=== PATIENT | female | born 1975 | race African-American/Black ===

== ENCOUNTER 2016-07-11 17:48 | Emergency (ER) | payer MEDICAID ==
[~2016-07-11] VITALS: Ht 167.6 cm; Wt 110.0 kg
[~2016-07-11 17:48] MED LIST: ASPI81CH CHEW; BENI40TA3 PO; CARV12.5 PO; CYCL1TAB29 PO; ENOX40P SQ; HYDR-3535 PO; LYRI50CA PO; MECL-62 PO; MELO-1 PO; RANI150C PO; SYMB160A INH; VENTAER INH
[2016-07-11 17:50] VITALS: BP 130/88; PULSE 93; RESP 15; TEMP 97.8; O2SAT 98
[2016-07-11] MEDS ORDERED: AMLO5TAB2 PO (18:14)
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
[2016-07-11 18:37] LABS: BLOOD, URINE NEG (NEG); COMMENT (UR) CULT NOT INDICATED; CULTURE IF INDICATED CULT NOT INDICATED; GLUCOSE,URINE NEG (NEG); KETONE, URINE NEG (NEG); MUCUS URINE FEW /lpf (OCC); NITRITE,URINE NEG (NEG); SQUAMOUS EPITHELIAL CELL URINE 5 /hpf (0-5); URINE COLOR YELLOW (YELLW/STRAW)
--- NOTE | 2016-07-11 18:56 | PD ---
Physical Exam Date Seen by Provider: Jul 11, 2016 Narrative Patient presented for a mass on the chest wall which disappeared today. Data Data Last Documented VS Vital Signs Date Time Temp Pulse Resp B/P Pulse Ox O2 Delivery O2 Flow Rate FiO2 07/11/16 18:05 18 Room Air 07/11/16 17:50 97.8 93 130/88 98 Orders Urinalysis - C+S If Indicated (07/11/16 18:13) Ed Urine Pregnancytest Poc (07/11/16 18:13) Labs Laboratory Tests Test 07/11/16 18:15 Urine Color YELLOW Urine Turbidity CLEAR Urine pH 6.0 Urine Specific [place] 1.025 Urine Protein NEG mg/dL Urine Glucose (UA) NEG mg/dL Urine Ketones NEG mg/dL Urine Occult Blood NEG Urine Nitrite NEG Urine Bilirubin NEG Urine Urobilinogen 2.0 MG/DL Urine Leukocyte Esterase NEG Urine WBC 1 /hpf Urine Squamous Epithelial 5 /hpf Cells Urine Mucus FEW /lpf Microscopic Urinalysis Comment CULT NOT INDICATED MDM Supervised Visit with LISET: Yes Narrative Course I, Dr. Cassidy, have reviewed the advance practice practitioner's documentation and am in agreement, met with the patient face to face, made the diagnosis, and the medical decision making was done by me. *My assessment and Findings: The patient was almost bouncing down the hallway in no acute distress. Diagnosis Primary Impression: Urinary frequency Referrals: Primary Care Physician call for appointment Patient Instructions: General Instructions, Urinary Urgency and Frequency (DC) Departure Forms: Tests/Procedures Additional Instruction: Follow-up with your primary care physician. Return to the emergency department for any acute worsening of symptoms. Disposition: 01 DISCHARGE HOME Condition: Stable Kely Cassidy MD Jul 11, 2016 18:56
== END 2016-07-11 19:04 | disposition home or self-care (01) ==
LOC: NEPA 17:48
DX: R39.15 Urgency of urination (principal); R35.0 Frequency of micturition; E11.9 Type 2 diabetes mellitus without complications; I10 Essential (primary) hypertension; F17.200 Nicotine dependence, unspecified, uncomplicated; Z79.01 Long term (current) use of anticoagulants; Z87.39 Personal history of other diseases of the musculoskeletal system and connective tissue; Z87.09 Personal history of other diseases of the respiratory system; Z86.59 Personal history of other mental and behavioral disorders; Z85.41 Personal history of malignant neoplasm of cervix uteri; Z86.79 Personal history of other diseases of the circulatory system; Z87.19 Personal history of other diseases of the digestive system; Z86.69 Personal history of other diseases of the nervous system and sense organs
CPT/HCPCS: 81001; 84703; 99283

== ENCOUNTER 2016-07-16 19:16 | Emergency (ER) | payer MEDICAID ==
[~2016-07-16] VITALS: Ht 170.2 cm; Wt 80.0 kg
[~2016-07-16 19:16] MED LIST changes: +AMLO5TAB2 PO
[2016-07-16 19:19] VITALS: BP 122/82; PULSE 88; RESP 16; TEMP 98.6; O2SAT 96
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
[2016-07-16] MEDS ORDERED: SODIUM CHLORIDE 0.9% FLUSH 5 ML FLUSH IVF PRN (19:45)
[2016-07-16] MEDS ORDERED: RESP: ALBUTEROL 2.5 MG/IPRATROPIUM 0.5 MG NEB (SCH) INH ONE (19:45)
--- NOTE | 2016-07-16 20:17 | RADRPT ---
EXAM DATE/TIME: 07/16/2016 19:50 [facility] COMPARISON: CHEST SINGLE AP, March 04, 2016, 15:05. INDICATIONS : Cough. MEDICAL HISTORY : None. SURGICAL HISTORY : None. ENCOUNTER: Initial ACUITY: 1 day PAIN SCORE: 0/10 LOCATION: Bilateral chest FINDINGS: A single view of the chest demonstrates the lungs to be symmetrically aerated without evidence of mas s, infiltrate or effusion. The cardiomediastinal contours are unremarkable. Osseous structures are intact. CONCLUSION: No acute disease. Haider Grace MD on July 16, 2016 at 20:16 Board Certified Radiologist. This report was verified electronically.
[2016-07-16 20:23] LABS: AUTOMATED NEUTROPHIL # 2.3 TH/MM3 (1.8-7.7); BASOPHIL # 0.1 TH/MM3 (0-0.2); BASOPHIL % 1.2 % (0.0-2.0); EOSINOPHIL # 0.2 TH/MM3 (0-0.4); EOSINOPHIL % 4.4 % (0.0-4.0); HEMATOCRIT 36.8 % (35.0-46.0); HEMO FLAGS DIFF FINAL; LYMPH % 34.9 % (9.0-44.0); LYMPHOCYTE # 1.7 TH/MM3 (1.0-4.8); MEAN CELL VOLUME 93.1 FL (80.0-100.0); MEAN CORPUSCULAR HEMOGLOBIN 31.9 PG (27.0-34.0); MEAN CORPUSCULAR HGB CONC 34.3 % (32.0-36.0); MONO % 11.2 % (0.0-8.0); NEUT % 48.3 % (16.0-70.0); PLATELET COUNT 216 TH/MM3 (150-450); RED BLOOD COUNT 3.96 MIL/MM3 (4.00-5.30); RED CELL DISTRIBUTION WIDTH 14.3 % (11.6-17.2); WHITE BLOOD COUNT 4.9 TH/MM3 (4.0-11.0)
[2016-07-16 21:01] LABS: BICARBONATE 31.7 MEQ/L (21.0-32.0); POTASSIUM 3.2 MEQ/L (3.5-5.1)
[2016-07-16] MEDS ORDERED: ZITHTAB PO (21:10)
[2016-07-16] MEDS ORDERED: VENTAER INH (21:10)
[2016-07-16] MEDS ORDERED: POTASSIUM CHLORIDE 20 MEQ CONTROLLED RELEASE TAB PO ONE (21:15)
--- NOTE | 2016-07-18 07:00 | EKG ---
Date Performed: 07/16/2016 Time Performed: 19:51:21 PTAGE: 41 years EKG: Sinus rhythm NORMAL ECG PREVIOUS TRACING : 05/07/2016 05.11 Compared to prior tracing no significant change DOCTOR: David Gonzalez Interpretating Date/Time 07/18/2016 06:58:50
== END 2016-07-16 21:31 | disposition home or self-care (01) ==
LOC: NEPC 19:16
DX: J32.9 Chronic sinusitis, unspecified (principal); E87.6 Hypokalemia; M06.9 Rheumatoid arthritis, unspecified; J45.909 Unspecified asthma, uncomplicated; F31.9 Bipolar disorder, unspecified; I10 Essential (primary) hypertension; F17.210 Nicotine dependence, cigarettes, uncomplicated; Z79.01 Long term (current) use of anticoagulants
CPT/HCPCS: 71010; 80048; 85025; 87804; 93005; 94664

== ENCOUNTER 2016-09-07 08:47 | Emergency (ER) | payer MEDICAID ==
[~2016-09-07] VITALS: Ht 167.6 cm; Wt 95.5 kg
[~2016-09-07 08:47] MED LIST changes: +ZITHTAB PO
[2016-09-07 08:50] VITALS: BP 130/65; PULSE 84; RESP 20; TEMP 98.6; O2SAT 94
[2016-09-07] MEDS ORDERED: LIDOCAINE HCL 2% 50 ML VIAL INFIL ONE (10:15)
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
--- NOTE | 2016-09-07 11:10 | PD ---
Physical Exam Date Seen by Provider: Sep 07, 2016 Time Seen by Provider: 11:10 Narrative I was asked by Dr. Escobedo to incise and drain abscess to patient's right labia majora. Please see her documentation for full history and physical. Data Data Last Documented VS Vital Signs Date Time Temp Pulse Resp B/P Pulse Ox O2 Delivery O2 Flow Rate FiO2 09/07/16 08:50 98.6 84 20 130/65 94 Room Air Orders Lidocaine 2% Inj (Xylocaine 2% Inj) (09/07/16 10:15) Wound Culture And Gram Stain (09/07/16 11:21) MDM Medical Record Reviewed: Yes Supervised Visit with LISET: No Procedures Procedure Narrative INCISION AND DRAINAGE OF ABSCESS: The area was prepped and was sterilely draped. A subcutaneous wheal of 2% Xylocaine with a total number 4 mL was used to anesthetize the area. The area was properly anesthetized. A number 11 scalpel was used to make a 1 -cm incision across the area of the abscess. Cultures were obtained. The abscess was drained an irrigated with normal saline. Quarter inch iodoform packing was placed in the wound. Sterile dressing applied. Patient advised to have packing removed in two days. Scripts Sulfamethoxazole-Trimethoprim (Bactrim DS)800-160 Mg Tab1 Tab PO BID #14 TAB Ref 0 Prov:Santana Escobedo MD 09/07/16 Hydrocodone-Acetaminophen (Lortab)5-325 Mg Tab1 Tab PO Q6H PRN (PAIN) #12 TAB Ref 0 Prov:Santana Escobedo MD 09/07/16 Amanda Carballo Sep 07, 2016 11:10
[2016-09-07] MEDS ORDERED: HYDR-3533 PO (11:23)
[2016-09-07] MEDS ORDERED: BACT800T5 PO (11:23)
== END 2016-09-07 11:48 | disposition home or self-care (01) ==
LOC: NEPC 08:47
DX: N76.4 Abscess of vulva (principal); I10 Essential (primary) hypertension; Z85.41 Personal history of malignant neoplasm of cervix uteri; Z79.01 Long term (current) use of anticoagulants
CPT/HCPCS: 10061; 87070; 87205

== ENCOUNTER 2016-09-27 09:30 | Emergency (ER) | payer MEDICAID ==
[~2016-09-27] VITALS: Ht 167.6 cm; Wt 107.9 kg
[~2016-09-27 09:30] MED LIST changes: +BACT800T5 PO; +HYDR-3533 PO
[2016-09-27 09:33] VITALS: BP 134/100; PULSE 78; RESP 17; TEMP 98.9; O2SAT 98
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
[2016-09-27] MEDS ORDERED: ONDANSETRON ODT 4 MG TAB PO ONE (10:30)
[2016-09-27 10:39] LABS: BACTERIA, URINE OCC /hpf; BLOOD, URINE NEG (NEG); COMMENT (UR) CULT NOT INDICATED; CULTURE IF INDICATED CULT NOT INDICATED; GLUCOSE,URINE NEG (NEG); HYALINE CAST, URINE 1 /lpf (RARE); KETONE, URINE NEG (NEG); MUCUS URINE FEW /lpf (OCC); NITRITE,URINE NEG (NEG); PH, URINE 5.5 (5.0-8.5); SQUAMOUS EPITHELIAL CELL URINE 10 /hpf (0-5); TRANSITIONAL EPI CELLS, URINE <1 /hpf; URINE COLOR YELLOW (YELLW/STRAW)
[2016-09-27 11:07] LABS: BICARBONATE 27.5 MEQ/L (21.0-32.0); POTASSIUM 3.9 MEQ/L (3.5-5.1)
[2016-09-27] MEDS ORDERED: METR-1 PO (12:07)
[2016-09-27 12:15] VITALS: BP 138/81; TEMP 98
== END 2016-09-27 12:15 | disposition home or self-care (01) ==
LOC: NEPD 09:30
DX: N76.0 Acute vaginitis (principal); K52.9 Noninfective gastroenteritis and colitis, unspecified; R30.0 Dysuria; I10 Essential (primary) hypertension; E11.9 Type 2 diabetes mellitus without complications; G35 Multiple sclerosis; Z72.0 Tobacco use; Z79.01 Long term (current) use of anticoagulants; Z87.39 Personal history of other diseases of the musculoskeletal system and connective tissue; Z87.09 Personal history of other diseases of the respiratory system; Z86.59 Personal history of other mental and behavioral disorders; Z85.41 Personal history of malignant neoplasm of cervix uteri; Z86.79 Personal history of other diseases of the circulatory system
CPT/HCPCS: 80048; 81001; 87210; 99284

== ENCOUNTER 2016-09-29 22:58 | Observation (INO) | payer MEDICAID ==
[~2016-09-29] VITALS: Ht 167.6 cm; Wt 108.4 kg
[~2016-09-29 22:58] MED LIST changes: -BACT800T5 PO; +METR-1 PO; -ZITHTAB PO
[2016-09-29 23:10] VITALS: RESP 16; O2SAT 97
[2016-09-29 23:20] VITALS: BP 141/91; PULSE 75; RESP 16; TEMP 98.7; O2SAT 98
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
--- NOTE | 2016-09-29 23:58 | RADRPT ---
EXAM DATE/TIME: 09/29/2016 23:49 [facility] COMPARISON: CHEST SINGLE AP, July 16, 2016, 19:50. INDICATIONS : Chest pain. MEDICAL HISTORY : Hypertension. Congestive heart failure. Multiple sclerosis. Asthma. Rheumatoid arthritis. SURGICAL HISTORY : None. ENCOUNTER: Initial ACUITY: 1 day PAIN SCORE: 3/10 LOCATION: Bilateral chest FINDINGS: A single view of the chest demonstrates the lungs to be symmetrically aerated without evidence of mas s, infiltrate or effusion. The cardiomediastinal contours are unremarkable. Osseous structures are intact. CONCLUSION: Normal examination. Carlos Joaquin MD on September 29, 2016 at 23:57 Board Certified Radiologist. This report was verified electronically.
[2016-09-30] MEDS ORDERED: HYDROmorphone HCL PF 1 MG/ML VIAL IV PUSH ONE
[2016-09-30] MEDS ORDERED: SODIUM CHLORID 0.9% 500 ML INJ 500 ML IV ONE
[2016-09-30] MEDS ORDERED: ONDANSETRON HCL 4 MG/2 ML VIAL IV PUSH ONE
[2016-09-30 00:44] LABS: AUTOMATED NEUTROPHIL # 3.1 TH/MM3 (1.8-7.7); BASOPHIL % 0.7 % (0.0-2.0); EOSINOPHIL # 0.2 TH/MM3 (0-0.4); EOSINOPHIL % 3.7 % (0.0-4.0); HEMATOCRIT 34.5 % (35.0-46.0); HEMO FLAGS DIFF FINAL; LYMPH % 34.6 % (9.0-44.0); MEAN CELL VOLUME 94.1 FL (80.0-100.0); MEAN CORPUSCULAR HEMOGLOBIN 32.5 PG (27.0-34.0); MEAN CORPUSCULAR HGB CONC 34.5 % (32.0-36.0); MONO % 7.3 % (0.0-8.0); NEUT % 53.7 % (16.0-70.0); PLATELET COUNT 219 TH/MM3 (150-450); RED BLOOD COUNT 3.67 MIL/MM3 (4.00-5.30); RED CELL DISTRIBUTION WIDTH 15.5 % (11.6-17.2); WHITE BLOOD COUNT 5.7 TH/MM3 (4.0-11.0)
[2016-09-30 00:57] LABS: APTT (PATIENT) 22.7 SEC (24.3-30.1); INTERNATIONAL NORMALIZED RATIO 0.9 RATIO
[2016-09-30 01:11] LABS: ALT (GPT) 20 U/L (10-53); ANION GAP 7 MEQ/L (5-15); AST (GOT) 11 U/L (15-37); BICARBONATE 27.3 MEQ/L (21.0-32.0); BLOOD UREA NITROGEN 15 MG/DL (7-18); CHLORIDE 107 MEQ/L (98-107); GLOMERULAR FILTRATION RATE 110 ML/MIN (>89); MAGNESIUM 2.2 MG/DL (1.5-2.5); POTASSIUM 3.5 MEQ/L (3.5-5.1); SODIUM (NA) 141 MEQ/L (136-145)
[2016-09-30 01:13] LABS: ALKALINE PHOSPHATASE 74 U/L (45-117); TOTAL BILIRUBIN ADULT 0.1 MG/DL (0.2-1.0)
--- NOTE | 2016-09-30 01:15 | RADRPT ---
EXAM DATE/TIME: 09/30/2016 01:08 [facility] COMPARISON: CT BRAIN W/O CONTRAST, May 29, 2016, 20:19. INDICATIONS : Right sided head pain. RADIATION DOSE: 37.42 CTDIvol (mGy) MEDICAL HISTORY : Cardiovascular disease. Multiple sclerosis. Diabetes mellitus type 2. SURGICAL HISTORY : Tubal ligation. ENCOUNTER: Initial ACUITY: 1 day PAIN SCALE: 6/10 LOCATION: Right cranial TECHNIQUE: Multiple contiguous axial images were obtained of the head. Using automated exposure control and adj ustment of the mA and/or kV according to patient size, radiation dose was kept as low as reasonably a chievable to obtain optimal diagnostic quality images. FINDINGS: CEREBRUM: The ventricles are normal for age. No evidence of midline shift, mass lesion, hemorrhage or acute in farction. No extra-axial fluid collections are seen. POSTERIOR FOSSA: The cerebellum and brainstem are intact. The 4th ventricle is midline. The cerebellopontine angle i s unremarkable. EXTRACRANIAL: The visualized portion of the orbits is intact. SKULL: The calvaria is intact. No evidence of skull fracture. CONCLUSION: Normal examination. Carlos Joaquin MD on September 30, 2016 at 1:14 Board Certified Radiologist. This report was verified electronically.
[2016-09-30] MEDS ORDERED: methylPREDNISolone SOD SUCC 125 MG/2 ML VIAL IV PUSH ONE (01:30)
--- NOTE | 2016-09-30 01:35 | RADRPT ---
EXAM DATE/TIME: 09/30/2016 01:08 [facility] COMPARISON: CT CERVICAL SPINE W/O CONTRAST, May 29, 2016, 20:19. INDICATIONS : Right sided neck and arm pain. RADIATION DOSE: 21.51 CTDIvol (mGy) MEDICAL HISTORY : Cardiovascular disease. Multiple sclerosis. Diabetes mellitus type 2. SURGICAL HISTORY : Tubal ligation. ENCOUNTER: Initial ACUITY: 1 day PAIN SCALE: 6/10 LOCATION: Right neck TECHNIQUE: Volumetric scanning of the cervical spine was performed. Multiplanar reconstructions in the sagittal, coronal and oblique axial planes were performed. Using automated exposure control and adjustment o f the mA and/or kV according to patient size, radiation dose was kept as low as reasonably achievable to obtain optimal diagnostic quality images. FINDINGS: VERTEBRAE: Normal vertebral body height. Mild intervertebral disc space narrowing at C4-5, C5-6 and C6-7. Promin ent posterior arthritis multiple levels most significantly at the C4-5 level where there is a periphe rally calcified disc causing a moderate canal stenosis, unchanged. ALIGNMENT: No evidence of subluxation. C2-C3: The bony spinal canal is normal in size. No evidence of disc bulge or herniation. The neural forami na are bilaterally patent. C3-C4: The bony spinal canal is slightly flattened. Central disc protrusion narrowing the thecal sac down to 7 mm. The neural foramina are bilaterally patent. C4-C5: The bony spinal canal is narrowed. Central disc protrusion with some peripheral calcifications narrow ing the thecal sac down to 7 mm. The neural foramina are bilaterally patent. C5-C6: The bony spinal canal is slightly narrowed. Broad based diffuse annular bulge diffusely flattens the thecal sac. The neural foramina are bilaterally patent. C6-C7: The bony spinal canal is normal in size. No evidence of disc bulge or herniation. The neural forami na are bilaterally patent. C7-T1: The bony spinal canal is normal in size. No evidence of disc bulge or herniation. The neural forami na are bilaterally patent. CONCLUSION: Degenerative disease with posterior protrusions at C3-4 and C4-5 narrowing the thecal site down to ap proximately 7 mm. Carlos Joaquin MD on September 30, 2016 at 1:29 Board Certified Radiologist. This report was verified electronically.
[2016-09-30] MEDS ORDERED: NALOXONE HCL 0.4 MG/ML AMP IV PRN (01:45)
[2016-09-30] MEDS ORDERED: SODIUM CHLORIDE 0.9% FLUSH 10 ML FLUSH IV FLUSH PRN (01:45)
[2016-09-30 02:29] LABS: BLOOD, URINE NEG (NEG); COMMENT (UR) CULT NOT INDICATED; CULTURE IF INDICATED CULT NOT INDICATED; GLUCOSE,URINE NEG (NEG); KETONE, URINE NEG (NEG); MUCUS URINE FEW /lpf (OCC); NITRITE,URINE NEG (NEG); SQUAMOUS EPITHELIAL CELL URINE 25 /hpf (0-5); URINE COLOR YELLOW (YELLW/STRAW)
[2016-09-30 05:07] VITALS: BP 121/74; PULSE 71; RESP 18; TEMP 98.4; O2SAT 97
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
[2016-09-30] MEDS ORDERED: CYCLOBENZAPRINE HCL 10 MG TAB PO PRN ×3 (07:15→13:00)
[2016-09-30] MEDS ORDERED: HYDROmorphone HCL PF 1 MG/ML VIAL IV PUSH PRN (07:15)
--- NOTE | 2016-09-30 07:42 | EKG ---
Date Performed: 09/29/2016 Time Performed: 23:26:02 PTAGE: 41 years EKG: BASELINE ARTIFACT PRESENT. Sinus rhythm NORMAL ECG COMPARED TO PRIOR ELECTROCARDIOGRAM, No significant change within the constraints of magaly fact. PREVIOUS TRACING : 07/16/2016 19.51 DOCTOR: Rony Cosme Interpretating Date/Time 09/30/2016 07:42:01
[2016-09-30 08:05] VITALS: BP 142/101; PULSE 74; RESP 18; TEMP 98.4; O2SAT 100
[2016-09-30] MEDS: SODIUM CHLORIDE 0.9% FLUSH 10 ML FLUSH IV FLUSH SCH ×2 (09:12→21:33)
[2016-09-30] MEDS: ENOXAPARIN SODIUM 40 MG/0.4 ML SYRINGE SQ SCH (09:12)
[2016-09-30] MEDS ORDERED: ALBUTEROL SULFATE 90 MCG/ACT HFA 18 GM INHALER INH PRN (11:00)
[2016-09-30] MEDS: metroNIDAZOLE 500 MG TAB PO SCH ×2 (11:32→21:33)
[2016-09-30] MEDS: CARVEDILOL 12.5 MG TAB PO SCH ×2 (11:32→21:33)
[2016-09-30] MEDS: ASPIRIN 81 MG CHEW TAB CHEW SCH (11:33)
[2016-09-30] MEDS: amLODIPine BESYLATE 5 MG TAB PO SCH (11:33)
[2016-09-30] MEDS: LOSARTAN 50 MG TAB PO SCH (11:36)
--- NOTE | 2016-09-30 11:40 | RADRPT ---
EXAM DATE/TIME: 09/30/2016 10:49 [facility] COMPARISON: No previous studies available for comparison. INDICATIONS : Bilateral leg numbness and pain. MEDICAL HISTORY : Congestive heart failure. Myocardial infarction. Hypertension. Multiple sclerosis. Chest pain. Asthma . Dyspnea. Seizures. Suad rectal abscess. Arthritis. Hypogycemia. Personality disorder. Cervical canc er. SURGICAL HISTORY : section.Tubal ligation. Heart catheter. Suad rectal abscess. ENCOUNTER: Initial ACUITY: >1 year PAIN SCORE: 4/10 LOCATION: Bilateral legs. TECHNIQUE: Venous ultrasound of the left and right leg was performed from the inguinal ligament to the proximal calf. Real-time, color Doppler and spectral tracing, compression and augmentation techniques were us ed. FINDINGS: RIGHT LEG: There is normal compressibility of the deep venous system from the inguinal region to the proximal ca lf. No echogenic clot is seen in the lumen of the common femoral, femoral, popliteal, and posterior tibial veins. There is a normal response of the venous system to proximal and distal augmentation an d respiration. LEFT LEG: There is normal compressibility of the deep venous system from the inguinal region to the proximal ca lf. No echogenic clot is seen in the lumen of the common femoral, femoral, popliteal, and posterior tibial veins. There is a normal response of the venous system to proximal and distal augmentation an d respiration. CONCLUSION: The study is negative for deep venous thrombosis bilateral lower extremity. Umair Slade MD on September 30, 2016 at 11:38 Board Certified Radiologist. This report was verified electronically.
[2016-09-30 12:09] VITALS: BP 136/82; PULSE 86; RESP 18; TEMP 97.8; O2SAT 97
--- NOTE | 2016-09-30 13:34 | HHI.FF ---
Face to Face Verification Diagnosis: (1) Spinal stenosis, cervical region (2) Weakness of both lower extremities Physical Therapy Order: Evaluate and Treat, Improve ambulation, Strength and gait training Home Health Nursing Order: Medical education Signs/symptoms of disease process Nursing assessment with vital signs I have seen patient Lamar Maldonado on 09/30/16. My clinical findings support the need for the requested home health care services because: Ltd mobility - disease progression Deconditioned w/ increased weakness High risk of falls I certify that my clinical findings support that this patient is homebound because: Unsteady gait/balance Unsafe to leave home unassisted Beverly Hamm PA-C Sep 30, 2016 13:34
[2016-09-30] MEDS: BUDESONIDE-FORMOTEROL 160/4.5 MCG INHALER INH SCH ×2 (14:22→21:32)
[2016-09-30] MEDS: MELOXICAM 15 MG TAB PO SCH (14:22)
[2016-09-30] MEDS: PREGABALIN 25 MG CAP PO SCH (14:22)
[2016-09-30] MEDS: FAMOTIDINE 20 MG TAB PO SCH ×2 (14:23→21:33)
[2016-09-30 20:00] VITALS: BP 136/86; PULSE 80; RESP 20; TEMP 98.4; O2SAT 100
[2016-09-30 20:01] VITALS: PULSE 84
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
[2016-10-01] VITALS (7 sets, daily range): BP systolic 121–139; BP diastolic 63–88; PULSE 60–84; RESP 18–21; TEMP 97.9–98.8; O2SAT 97–100
[2016-10-01 07:56] LABS: AUTOMATED NEUTROPHIL # 6.4 TH/MM3 (1.8-7.7); BASOPHIL % 0.4 % (0.0-2.0); EOSINOPHIL # 0.1 TH/MM3 (0-0.4); EOSINOPHIL % 0.8 % (0.0-4.0); HEMATOCRIT 34.9 % (35.0-46.0); HEMO FLAGS DIFF FINAL; LYMPH % 26.3 % (9.0-44.0); LYMPHOCYTE # 2.5 TH/MM3 (1.0-4.8); MEAN CELL VOLUME 95.1 FL (80.0-100.0); MEAN CORPUSCULAR HEMOGLOBIN 32.2 PG (27.0-34.0); MEAN CORPUSCULAR HGB CONC 33.8 % (32.0-36.0); MONO % 6.5 % (0.0-8.0); PLATELET COUNT 208 TH/MM3 (150-450); RED BLOOD COUNT 3.67 MIL/MM3 (4.00-5.30); RED CELL DISTRIBUTION WIDTH 15.4 % (11.6-17.2); WHITE BLOOD COUNT 9.6 TH/MM3 (4.0-11.0)
[2016-10-01] MEDS ORDERED: ACETAMINOPHEN/HYDROcodone 325 MG/10 MG TAB PO PRN (08:00)
[2016-10-01 08:17] LABS: BICARBONATE 25.3 MEQ/L (21.0-32.0)
[2016-10-01] MEDS: MELOXICAM 15 MG TAB PO SCH (09:32)
[2016-10-01] MEDS: PREGABALIN 25 MG CAP PO SCH (09:32)
[2016-10-01] MEDS: ACETAMINOPHEN/HYDROcodone 325 MG/5 MG TAB PO PRN ×3 (09:33→22:44)
[2016-10-01] MEDS: CARVEDILOL 12.5 MG TAB PO SCH ×2 (09:33→21:56)
[2016-10-01] MEDS: FAMOTIDINE 20 MG TAB PO SCH ×2 (09:33→21:55)
[2016-10-01] MEDS: metroNIDAZOLE 500 MG TAB PO SCH ×2 (09:33→21:56)
[2016-10-01] MEDS: ASPIRIN 81 MG CHEW TAB CHEW SCH (09:33)
[2016-10-01] MEDS: amLODIPine BESYLATE 5 MG TAB PO SCH (09:33)
[2016-10-01] MEDS: LOSARTAN 50 MG TAB PO SCH (09:34)
[2016-10-01] MEDS: BUDESONIDE-FORMOTEROL 160/4.5 MCG INHALER INH SCH ×2 (09:34→21:56)
[2016-10-01] MEDS: ENOXAPARIN SODIUM 40 MG/0.4 ML SYRINGE SQ SCH (09:34)
[2016-10-01] MEDS: SODIUM CHLORIDE 0.9% FLUSH 10 ML FLUSH IV FLUSH SCH ×2 (09:35→21:55)
--- NOTE | 2016-10-01 17:46 | HHI.PR ---
Subjective Remarks Follow up right sided weakness and chronic pain. Patient seen and Examined. Patient states she still has right sided weakness with numbness and tingling. She states she came in because she felt her right side was paralyzed from her face to lower extremity. Denies ever having these symptoms before. No hx of cva , htn, or HLD. She denies any chest pain, sob, fever or chills. Objective Vitals Vital Signs Date Time Temp Pulse Resp B/P Pulse Ox O2 Delivery O2 Flow Rate FiO2 10/01/16 16:45 98.8 67 18 121/71 98 10/01/16 12:53 98.4 60 21 132/78 100 10/01/16 08:02 98.2 71 18 138/63 98 10/01/16 04:00 97.9 73 20 128/80 99 10/01/16 00:00 98.5 78 20 139/88 97 09/30/16 20:01 84 09/30/16 20:00 98.4 80 20 136/86 100 Result Diagram: 10/01/16 0626 10/01/16 06 Imaging Last Impressions Lower Extremity Ultrasound 09/30/16 0000 Signed Impressions: Service Date/Time: Friday, September 30, 2016 10:49 - CONCLUSION: The study is negative for deep venous thrombosis bilateral lower extremity. Umair Slade MD Head CT 09/29/166 Signed Impressions: Service Date/Time: Friday, September 30, 2016 01:08 - CONCLUSION: Normal examination. Carlos Joaquin MD Chest X-Ray 09/29/166 Signed Impressions: Service Date/Time: Thursday, September 29, 2016 23:49 - CONCLUSION: Normal examination. Carlos Joaquin MD Cervical Spine CT 09/29/16 0000 Signed Impressions: Service Date/Time: Friday, September 30, 2016 01:08 - CONCLUSION: Degenerative disease with posterior protrusions at C3-4 and C4-5 narrowing the thecal site down to approximately 7 mm. Carlos Joaquin MD Objective Remarks GENERAL: This is a well-nourished, well-developed patient, in no apparent distress. SKIN: No rashes, ecchymoses or lesions. Cool and dry. HEAD: Atraumatic. Normocephalic. EYES: No scleral icterus. No injection or drainage. ENT: Nose without bleeding, purulent drainage. NECK: Trachea midline. No JVD or lymphadenopathy. CARDIOVASCULAR: Regular rate and rhythm without murmurs, gallops, or rubs. RESPIRATORY: Clear to auscultation. Breath sounds equal bilaterally. No wheezes , rales, or rhonchi. GASTROINTESTINAL: Abdomen soft, non-tender, nondistended. No guarding. MUSCULOSKELETAL: Extremities without clubbing, cyanosis. No calf tenderness. Right side lower extremity is bigger than left; right sided extremities weak - 4 /5 muscle strength RUE and RLE; 5/5 muscle strength on left. NEUROLOGICAL: Awake and alert. Motor and sensory grossly within normal limits. Normal speech. Medications and IVs Current Medications Medications (Trade) Dose Ordered Sig/Berny Route Start Time Stop Time Status Last Admin (NS Flush) 2 ml UNSCH PRN IV FLUSH 09/30/16 01:45 (NS Flush) 2 ml BID IV FLUSH 09/30/16 09:00 10/01/16 09:35 (Narcan Inj) 0.4 mg UNSCH PRN IV 09/30/16 01:45 (Lovenox Inj) 40 mg Q24H SQ 09/30/16 08:00 10/01/16 09:34 (Ventolin Hfa Inh) 2 puff Q6H PRN INH 09/30/16 11:00 (Norvasc) 5 mg DAILY PO 09/30/16 11:00 10/01/16 09:33 (Aspirin Chew) 81 mg DAILY CHEW 09/30/16 11:00 10/01/16 09:33 (Symbicort 160-4.5 Inh) 2 puff Q12HR INH 09/30/16 12:00 10/01/16 09:34 (Coreg) 12.5 mg BID PO 09/30/16 11:00 10/01/16 09:33 (Mobic) 15 mg DAILY PO 09/30/16 12:00 10/01/16 09:32 (Flagyl) 500 mg BID PO 09/30/16 11:00 10/01/16 09:33 (Lyrica) 50 mg DAILY PO 09/30/16 12:00 10/01/16 09:32 (Cozaar) 100 mg DAILY PO 09/30/16 11:00 10/01/16 09:34 (Pepcid) 20 mg BID PO 09/30/16 11:00 10/01/16 09:33 (Flexeril) 10 mg TID PRN PO 09/30/16 13:00 09/30/16 21:35 ([place] 5-325 Mg) 1 tab Q6H PRN PO 10/01/16 08:00 10/01/16 16:48 ([place] 10-325 Mg) 1 tab Q6H PRN PO 10/01/16 08:00 A/P Problem List: (1) Spinal stenosis, cervical region ICD Code: M48.02 Status: Chronic (2) Weakness ICD Code: R53.1 Status: Acute Assessment and Plan Mrs. Maldonado is a 41 year-old female with a history of hypertension, coronary artery disease, congestive heart failure with an EF of 45-50 by echo in 2014, hyperlipidemia, obesity, and asthma who presented to the ER with inability to ambulate. Cervical spinal stenosis noted on CT. Cervical spinal stenosis Right-sided weakness, Negative head CT Reports reviewed MRI spine 06/04/2016 [facility] disk bulging t11- t12, mod right neuroforaminal stenosis. T10-11 mild disk bulging. T11-12 neural encroachment. C2-3 and C4-C5 midline posterior disk herniation. Disk bulge and associated radial tear at C6-7. Ventral cord compression at C4-5. T2 right paracentral posterior disk herniation. L1-2 moderate to severe disk bulging, L2- 3, L3-4, and L5-S1 mod disc bulging, -Cervical spine CT with degenerative disease with posterior protrusions at C3 - C4 and C4 - C5 with narrowing of the thecal site down to approximately 7 mm -Consult neurosurgery - patient saw Dr. Sanders plans to review patients MRI disks when the patients brings them in. -Cont PT -Cont Neuro checks every 4 hours -Consult neurology for numbness and tingling, questionable TIA, second opinion -Repeat MRI Spine and Brain -Lipid profile ordered DVT prophylaxis - Lovenox 40 mg Written by SELMA Madden acting as scribe for on 10/01/16 at 17: 36 Attending Statement This note was transcribed by scribe. I, Dr. Nancy S Apple personally performed the history, physical exam, and medical decision making; and confirmed the accuracy of the information in the transcribed note. Puja Peters Oct 01, 2016 17:46 Nancy Chiu MD October 14, 2016 10:50
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
[2016-10-02 04:12] VITALS: BP 130/70; PULSE 66; RESP 18; TEMP 98.3; O2SAT 98
[2016-10-02 08:09] VITALS: BP 125/83; PULSE 64; RESP 20; TEMP 97; O2SAT 98
[2016-10-02] MEDS: ENOXAPARIN SODIUM 40 MG/0.4 ML SYRINGE SQ SCH (09:01)
[2016-10-02] MEDS: SODIUM CHLORIDE 0.9% FLUSH 10 ML FLUSH IV FLUSH SCH ×2 (09:01→19:52)
[2016-10-02] MEDS: amLODIPine BESYLATE 5 MG TAB PO SCH (09:02)
[2016-10-02] MEDS: ASPIRIN 81 MG CHEW TAB CHEW SCH (09:02)
[2016-10-02] MEDS: FAMOTIDINE 20 MG TAB PO SCH ×2 (09:02→19:53)
[2016-10-02] MEDS: metroNIDAZOLE 500 MG TAB PO SCH ×2 (09:02→19:53)
[2016-10-02] MEDS: CARVEDILOL 12.5 MG TAB PO SCH ×2 (09:02→19:52)
[2016-10-02] MEDS: PREGABALIN 25 MG CAP PO SCH (09:02)
[2016-10-02] MEDS: BUDESONIDE-FORMOTEROL 160/4.5 MCG INHALER INH SCH ×2 (09:03→19:52)
[2016-10-02] MEDS: ACETAMINOPHEN/HYDROcodone 325 MG/5 MG TAB PO PRN ×2 (09:04→19:53)
[2016-10-02] MEDS: MELOXICAM 15 MG TAB PO SCH (09:17)
[2016-10-02] MEDS: LOSARTAN 50 MG TAB PO SCH (09:17)
[2016-10-02 10:35] LABS: HDL CHOLESTEROL 49.7 MG/DL (40.0-60.0)
[2016-10-02] MEDS ORDERED: GADODIAMIDE PF 287 MG/ML 5 ML VIAL (for RAD MRI) IV ONE (11:11)
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
[2016-10-02 13:23] VITALS: BP 126/81; PULSE 80; RESP 20; TEMP 96.9; O2SAT 97
--- NOTE | 2016-10-02 13:30 | HHI.PR ---
Subjective Remarks Follow-up for right-sided spasms, paresthesias, pain. The patient continues to complain of numbness, tingling, and pain on her right upper and lower extremity , but does feel like it is improved some today. She states the pain is controlled today on home [facility]. She normally ambulates using a rolling walker. She had been following up with neurology as outpatient for symptoms, but after insurance change has been having difficulty with outpatient follow-up. She states that she has been given Flexeril for muscle spasms, but feels like it makes the spasms worse, does not want try any other muscle relaxers. The patient had PT upon previous discharge for similar condition last year, felt that it helped, would like to resume PT. Objective Vitals Vital Signs Date Time Temp Pulse Resp B/P Pulse Ox O2 Delivery O2 Flow Rate FiO2 10/02/16 08:09 97.0 64 20 125/83 98 10/02/16 04:12 98.3 66 18 130/70 98 10/01/16 23:49 98.7 79 20 134/76 100 10/01/16 23:44 18 10/01/16 19:50 98.0 84 18 130/85 98 10/01/16 16:45 98.8 67 18 121/71 98 Result Diagram: 10/01/16 0626 10/01/16 0626 Imaging Last Impressions Thoracic Spine MRI 10/02/16 0000 Signed Impressions: Service Date/Time: September 10:18 - CONCLUSION: 1. Stable diffuse asymmetric disc osteophyte complex to the right at this level which results in slight effacement of the right anterolateral thecal sac but no spinal stenosis or nerve root impingement. 2. Degenerative disc disease at T11-12. 3. Stable mild chronic compression deformities involving T11 and T12. Ze Fregoso MD Lumbar Spine MRI 10/02/16 0000 Signed Impressions: Service Date/Time: September 10:18 - CONCLUSION: 1. Mild bilateral foraminal narrowing at L3-4. 2. Facet joint hypertrophy bilaterally at L2-3, L3-4, L4-5 and L5-S1. 3. Mild diffuse disc bulge at L3-4 and minimal diffuse disc bulges at L2-3 and L4-5. Ze Fregoso MD Cervical Spine MRI 10/02/16 Signed Impressions: Service Date/Time: September 10:18 - CONCLUSION: 1. Mild spinal stenosis and bilateral foraminal narrowing at C3-4, C4-5, C5-6 and C6- 7. 2. No significant change compared to 12/02/15. 3. Diffuse cervical spondylosis from C3 through C7. Ze Fregoso MD Brain MRI 10/02/16 Signed Impressions: Service Date/Time: September 10:18 - CONCLUSION: No acute disease. Ze Fregoso MD Lower Extremity Ultrasound 09/30/16 Signed Impressions: Service Date/Time: Friday, September 30, 2016 10:49 - CONCLUSION: The study is negative for deep venous thrombosis bilateral lower extremity. Umair Slade MD Head CT [id number]/29/[id number] Signed Impressions: Service Date/Time: Friday, September 30, 2016 01:08 - CONCLUSION: Normal examination. Carlos Joaquin MD Chest X-Ray [id number]/29/[id number] Signed Impressions: Service Date/Time: Thursday, September 29, 2016 23:49 - CONCLUSION: Normal examination. Carlos Joaquin MD Cervical Spine CT 09/29/16 Signed Impressions: Service Date/Time: Friday, September 30, 2016 01:08 - CONCLUSION: Degenerative disease with posterior protrusions at C3-4 and C4-5 narrowing the thecal site down to approximately 7 mm. Carlos Joaquin MD Objective Remarks GENERAL: Well-developed well-nourished obese. In no acute distress. SKIN: Warm and dry. No lesions noted. HEENT: Normocephalic. Pupils equal and round. Mucous membranes pink and moist. CARDIOVASCULAR: Regular rate and rhythm. No murmur appreciated. RESPIRATORY: No accessory muscle use. Clear to auscultation. Breath sounds equal bilaterally. GASTROINTESTINAL: Abdomen soft, non-tender, nondistended. Bowel sounds x4. MUSCULOSKELETAL: No obvious deformities. No clubbing or cyanosis. No edema. NEUROLOGICAL: Awake and alert. Moves upper and lower extremities spontaneously. Normal speech. PSYCHIATRIC: Appropriate mood and affect; insight and judgment normal. A/P Problem List: (1) Spinal stenosis, cervical region ICD Code: M48.02 Status: Chronic (2) Weakness ICD Code: R53.1 Status: Acute Assessment and Plan Mrs. Maldonado is a 41 year-old female with a history of hypertension, coronary artery disease, congestive heart failure with an EF of 45-50 by echo in 2014, hyperlipidemia, obesity, and asthma who presented to the ER with inability to ambulate. Cervical spinal stenosis was noted on CT. Cervical spinal stenosis Right-sided weakness, Negative head CT Reviewed previous imaging reports that the patient brought in. Reviewed MRIs done today of the brain and entire spine. Brain MRI normal. Patient with significant mild to moderate degenerative changes of the entire spine; appears slightly better from outpatient MRIs done 05/30. -Consulted neurosurgery, seen by Dr. Sanders, who recommended MRIs of the neuraxis. -Consulted PT, recommends continued physical therapy -Cont Neuro checks every 4 hours -Consulted neurology for numbness and tingling, and agrees with MRIs, will follow-up on the results Chronic pain: Continue home Lyrica, [facility]arch, meloxicam, Flexeril. Recommended patient follow-up as outpatient for continued pain management. Bacterial vaginosis: Diagnosed in the ED 09/27. Continue Flagyl. Other chronic medical conditions including COPD, HTN, GERD, CAD, CHF: Stable at this time and will continue home medications as indicated. Lipid profile within normal limits. DVT prophylaxis - Lovenox 40 mg Discharge Planning Possible discharge planning to home with PT if cleared by neurosurgery and neurology. Celio Pineda Oct 02, 2016 13:30
[2016-10-02 15:53] VITALS: BP 126/71; PULSE 80; RESP 20; TEMP 98; O2SAT 99
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
[2016-10-02 20:00] VITALS: BP 125/80; PULSE 80; RESP 20; TEMP 96.4; O2SAT 98
[2016-10-03] VITALS: BP 122/64; PULSE 75; RESP 20; TEMP 96.6; O2SAT 98
[2016-10-03] MEDS: ACETAMINOPHEN/HYDROcodone 325 MG/5 MG TAB PO PRN (03:06)
[2016-10-03] MEDS ORDERED: MECLIZINE HCL 25 MG TAB PO ONE (03:30)
[2016-10-03 04:38] VITALS: BP 124/88; PULSE 68; RESP 20; TEMP 97.8; O2SAT 98
[2016-10-03 07:31] VITALS: BP 134/83; PULSE 67; RESP 18; TEMP 98.3; O2SAT 98
[2016-10-03] MEDS: ENOXAPARIN SODIUM 40 MG/0.4 ML SYRINGE SQ SCH (09:37)
[2016-10-03] MEDS: FAMOTIDINE 20 MG TAB PO SCH (09:38)
[2016-10-03] MEDS: PREGABALIN 25 MG CAP PO SCH (09:38)
[2016-10-03] MEDS: metroNIDAZOLE 500 MG TAB PO SCH (09:39)
[2016-10-03] MEDS: CARVEDILOL 12.5 MG TAB PO SCH (09:39)
[2016-10-03] MEDS: MELOXICAM 15 MG TAB PO SCH (09:39)
[2016-10-03] MEDS: LOSARTAN 50 MG TAB PO SCH (09:39)
[2016-10-03] MEDS: amLODIPine BESYLATE 5 MG TAB PO SCH (09:39)
[2016-10-03] MEDS: ASPIRIN 81 MG CHEW TAB CHEW SCH (09:39)
[2016-10-03] MEDS: SODIUM CHLORIDE 0.9% FLUSH 10 ML FLUSH IV FLUSH SCH (09:40)
[2016-10-03] MEDS: BUDESONIDE-FORMOTEROL 160/4.5 MCG INHALER INH SCH (09:40)
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
[2016-10-03 11:38] VITALS: BP 132/78; PULSE 73; RESP 20; TEMP 98.4; O2SAT 99
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
== END 2016-10-03 14:22 | disposition home or self-care (01) ==
LOC: NEPC 22:58 → NEDA 09-30 01:32 → NEPHCDU 09-30 04:08
PROVIDERS: ADMIT Family Medicine; ATTEND Family Medicine
DX: G35 Multiple sclerosis (principal); M54.2 Cervicalgia; M79.604 Pain in right leg; M79.621 Pain in right upper arm; R19.7 Diarrhea, unspecified; R11.2 Nausea with vomiting, unspecified; N76.0 Acute vaginitis; R25.3 Fasciculation; R53.1 Weakness; N75.1 Abscess of Bartholin's gland; I50.9 Heart failure, unspecified; I11.0 Hypertensive heart disease with heart failure; I25.2 Old myocardial infarction; G89.29 Other chronic pain; M06.9 Rheumatoid arthritis, unspecified; J45.909 Unspecified asthma, uncomplicated; Z79.01 Long term (current) use of anticoagulants; F31.9 Bipolar disorder, unspecified; Z85.41 Personal history of malignant neoplasm of cervix uteri; R51 Headache; F60.3 Borderline personality disorder; F42.9 Obsessive-compulsive disorder, unspecified; R56.9 Unspecified convulsions; F17.210 Nicotine dependence, cigarettes, uncomplicated; Z79.899 Other long term (current) drug therapy; I25.10 Atherosclerotic heart disease of native coronary artery without angina pectoris; E78.5 Hyperlipidemia, unspecified; E66.9 Obesity, unspecified; M48.02 Spinal stenosis, cervical region; R20.0 Anesthesia of skin; K21.9 Gastro-esophageal reflux disease without esophagitis; J44.9 Chronic obstructive pulmonary disease, unspecified
CPT/HCPCS: 70450; 70553; 71010; 72125; 72141; 72146; 72148; 80048; 80053; 80061; 81001; 83690; 83735; 84703; 85025; 85610; 85730; 86140; 93005; 93970; 96361; 96374; 96375; 97162; 97530; 99285; A9579; G0378; G8987; G8988; J1170; J1650; J2405; J2930; J7040

== ENCOUNTER 2016-12-11 23:44 | Emergency (ER) | payer MEDICAID ==
[~2016-12-11] VITALS: Ht 172.7 cm; Wt 107.0 kg
[~2016-12-11 23:44] MED LIST changes: -ENOX40P SQ; -HYDR-3533 PO; -METR-1 PO
[2016-12-11 23:46] VITALS: BP 159/79; PULSE 73; RESP 16; TEMP 97.8; O2SAT 100
[2016-12-12] MEDS ORDERED: AUGM875T3 PO (00:12)
[2016-12-12] MEDS ORDERED: AMOXICILLIN/CLAVULANATE K 875 MG TAB PO ONE (00:15)
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
== END 2016-12-12 00:39 | disposition home or self-care (01) ==
LOC: NEPE 23:44
DX: J01.90 Acute sinusitis, unspecified (principal); M06.9 Rheumatoid arthritis, unspecified; J45.909 Unspecified asthma, uncomplicated; I50.9 Heart failure, unspecified; I10 Essential (primary) hypertension; F31.9 Bipolar disorder, unspecified; F42.9 Obsessive-compulsive disorder, unspecified; F60.3 Borderline personality disorder; F17.200 Nicotine dependence, unspecified, uncomplicated
CPT/HCPCS: 99283

== ENCOUNTER 2017-01-25 14:52 | Emergency (ER) | payer MEDICAID ==
[~2017-01-25] VITALS: Ht 167.6 cm; Wt 91.0 kg
[~2017-01-25 14:52] MED LIST changes: +AUGM875T3 PO
[2017-01-25 15:04] VITALS: BP 122/74; PULSE 74; RESP 20; TEMP 98.3; O2SAT 98
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
[2017-01-25] MEDS ORDERED: AUGM875T3 PO (15:32)
[2017-01-25] MEDS ORDERED: FLUT1SPR5 EACH NARE (15:32)
== END 2017-01-25 15:40 | disposition home or self-care (01) ==
LOC: NEPE 14:52
DX: J01.01 Acute recurrent maxillary sinusitis (principal); G35 Multiple sclerosis; F17.200 Nicotine dependence, unspecified, uncomplicated
CPT/HCPCS: 99284

== ENCOUNTER 2017-02-08 21:53 | Emergency (ER) | payer MEDICAID ==
[~2017-02-08] VITALS: Ht 167.6 cm; Wt 108.0 kg
[~2017-02-08 21:53] MED LIST changes: +FLUT1SPR5 EACH NARE
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
[2017-02-08 22:14] VITALS: BP 143/88; PULSE 96; RESP 18; TEMP 98; O2SAT 95
[2017-02-08] MEDS ORDERED: SODIUM CHLOR 0.9% 1000 ML INJ 1,000 ML IV ONE (22:45)
[2017-02-08] MEDS ORDERED: LORazepam 2 MG/ML VIAL IV PUSH ONE (23:00)
--- NOTE | 2017-02-08 23:21 | RADRPT ---
EXAM DATE/TIME: 02/08/2017 23:11 [place] COMPARISON: No previous studies available for comparison. INDICATIONS : Nontraumatic right hip pain on a patient with multiple sclerosis. MEDICAL HISTORY : Multiple sclerosis. Hypertension cervical ca SURGICAL HISTORY : None. ENCOUNTER: Initial ACUITY: 1 day PAIN SCORE: 10/10 LOCATION: Right hip FINDINGS: 2 AP views of the pelvis with 2 views of the right hip joint demonstrate no fracture or dislocation. Mineralization is normal. There is no significant arthropathy. Mild degenerative change is present at the pubic symphysis. No soft tissue abnormality or radiopaque foreign body is identified. CONCLUSION: No acute abnormality is identified. Roman Farmer MD on February 08, 2017 at 23:17 Board Certified Radiologist. This report was verified electronically.
[2017-02-08 23:53] LABS: AUTOMATED NEUTROPHIL # 3.5 TH/MM3 (1.8-7.7); BASOPHIL % 0.6 % (0.0-2.0); EOSINOPHIL # 0.3 TH/MM3 (0-0.4); EOSINOPHIL % 3.9 % (0.0-4.0); HEMATOCRIT 34.3 % (35.0-46.0); HEMO FLAGS DIFF FINAL; LYMPH % 35.4 % (9.0-44.0); LYMPHOCYTE # 2.3 TH/MM3 (1.0-4.8); MEAN CELL VOLUME 95.1 FL (80.0-100.0); MEAN CORPUSCULAR HEMOGLOBIN 32.3 PG (27.0-34.0); MONO % 6.4 % (0.0-8.0); NEUT % 53.7 % (16.0-70.0); PLATELET COUNT 187 TH/MM3 (150-450); WHITE BLOOD COUNT 6.5 TH/MM3 (4.0-11.0)
[2017-02-09 00:11] LABS: ALT (GPT) 23 U/L (10-53); ANION GAP 6 MEQ/L (5-15); AST (GOT) 16 U/L (15-37); BICARBONATE 26.6 MEQ/L (21.0-32.0); BLOOD UREA NITROGEN 24 MG/DL (7-18); CHLORIDE 106 MEQ/L (98-107); GLOMERULAR FILTRATION RATE 52 ML/MIN (>89); POTASSIUM 3.2 MEQ/L (3.5-5.1); SODIUM (NA) 139 MEQ/L (136-145)
[2017-02-09 00:13] LABS: ALKALINE PHOSPHATASE 99 U/L (45-117); TOTAL BILIRUBIN ADULT 0.2 MG/DL (0.2-1.0)
[2017-02-09] MEDS ORDERED: POTASSIUM CHLORIDE 20 MEQ CONTROLLED RELEASE TAB PO ONE (00:30)
[2017-02-09] MEDS ORDERED: KETOROLAC TROMETHAMINE 30 MG/ML (IVP) VIAL IV PUSH ONE (00:30)
[2017-02-09 00:50] LABS: BACTERIA, URINE RARE /hpf; BLOOD, URINE NEG (NEG); COMMENT (UR) CULT NOT INDICATED; CULTURE IF INDICATED CULT NOT INDICATED; GLUCOSE,URINE NEG (NEG); KETONE, URINE NEG (NEG); MUCUS URINE FEW /lpf (OCC); NITRITE,URINE NEG (NEG); PH, URINE 5.5 (5.0-8.5); SQUAMOUS EPITHELIAL CELL URINE 2 /hpf (0-5); URINE COLOR YELLOW (YELLW/STRAW)
[2017-02-09 02:49] VITALS: RESP 20
== END 2017-02-09 02:51 | disposition home or self-care (01) ==
LOC: NEPD 21:53
DX: G89.4 Chronic pain syndrome (principal); G35 Multiple sclerosis; M06.9 Rheumatoid arthritis, unspecified; I10 Essential (primary) hypertension; J45.909 Unspecified asthma, uncomplicated; Z79.01 Long term (current) use of anticoagulants; Z79.82 Long term (current) use of aspirin
CPT/HCPCS: 73502; 80053; 81001; 85025; 96374; 96375; 99285; J1885; J2060; J7030

== ENCOUNTER 2017-04-26 14:33 | Emergency (ER) | payer MEDICAID ==
[~2017-04-26 14:33] MED LIST changes: +ASPI-516 CHEW; -ASPI81CH CHEW; +BENI40TA29 PO; -BENI40TA3 PO; +CYCL10TA PO; -CYCL1TAB29 PO; -MELO-1 PO; +MELO15TA20 PO
[2017-04-26 14:35] VITALS: BP 142/82; PULSE 81; RESP 14; TEMP 98.2; O2SAT 97
[2017-04-26 15:32] LABS: BACTERIA, URINE MOD /hpf; BLOOD, URINE NEG (NEG); GLUCOSE,URINE NEG (NEG); KETONE, URINE NEG (NEG); MUCUS URINE FEW /lpf (OCC); NITRITE,URINE NEG (NEG); PH, URINE 5.5 (5.0-8.5); SQUAMOUS EPITHELIAL CELL URINE 24 /hpf (0-5); URINE COLOR YELLOW (YELLW/STRAW)
[2017-04-26 15:34] LABS: COMMENT (UR) CULTURE INDICATED; CULTURE IF INDICATED CULTURE INDICATED
== END 2017-04-26 16:00 | disposition left against medical advice (07) ==
LOC: NED 14:33
DX: R30.0 Dysuria (principal); Z53.21 Procedure and treatment not carried out due to patient leaving prior to being seen by health care provider
CPT/HCPCS: 81001; 84703; 87086; 99281

== ENCOUNTER 2017-05-01 20:43 | Emergency (ER) | payer MEDICAID ==
[~2017-05-01] VITALS: Ht 167.6 cm; Wt 91.0 kg
[2017-05-01 20:44] VITALS: BP 128/89; PULSE 81; RESP 18; TEMP 98.7; O2SAT 98
--- NOTE | 2017-05-01 21:14 | PD ---
HPI Chief Complaint: Abnormal Results Time Seen by Provider: 21:11 Travel History International Travel<30 days: No Contact w/Intl Traveler<30days: No Traveled to known affect area: No History of Present Illness HPI 42-year-old black female presents to emergency department requesting a urine drug screen. She states that she was sent here by her attorney lawyer to have a urine drug test done. She states that she was told that she tested positive for illegal substances in her urine when she went to get into a treatment plan for her MS. She would like to get a another urine done for her attorney lawyer. She denies any acute medical complaints. History Past Medical Histgory Narrative Medical Multiple sclerosis, chronic pain LMP: 05-01-17 Hx Cancer: Yes (CERVICAL CA x2 times) Hx Chemotherapy: Yes (CERVICAL CA) Social History Alcohol Use: Yes (OCCASIONAL) Tobacco Use: Yes (<1 ppd) Allergies-Medications (Allergen,Severity, Reaction): Coded Allergies: phytonadione (vitamin K1) (Unverified Allergy, Severe, THROAT SWELLS, ) lisinopril (Unverified Allergy, Intermediate, HIVES / SEVERE COUGHING, ) pineapple (Unverified Allergy, Intermediate, ITCHING, 05/01/17) Reported Meds & Prescriptions Reported Meds & Active Scripts Active Flonase Nasal [place] (Fluticasone Nasal [place]) 50 Mcg/Act [place] 100 Mcg EACH NARE BID Augmentin (Amoxicillin-Clavulanate) 875-125 Mg Tab 1 Tab PO BID 10 Days Augmentin (Amoxicillin-Clavulanate) 875-125 Mg Tab 1 Tab PO BID 7 Days Ventolin Hfa 18 GM Inh (Albuterol Sulfate) 90 Mcg/Act Aer 2 Puff INH Q4H PRN Reported Amlodipine (Amlodipine Besylate) 5 Mg Tab 5 Mg PO DAILY Meloxicam 15 Mg Tab 15 Mg PO DAILY Ranitidine (Ranitidine HCl) 150 Mg Cap 150 Mg PO DAILY Benicar (Olmesartan) 40 Mg Tab 40 Mg PO DAILY Meclizine (Meclizine HCl) 25 Mg Tab 50 Mg PO BID PRN Lortab (Hydrocodone-Acetaminophen) 10-325 Mg Tab 1 Tab PO Q6H PRN Lyrica (Pregabalin) 50 Mg Cap 50 Mg PO DAILY Flexeril (Cyclobenzaprine HCl) 10 Mg Tab 10 Mg PO TID PRN Coreg (Carvedilol) 12.5 Mg Tab 12.5 Mg PO BID Aspirin 81 Mg Chew 81 Mg CHEW DAILY Symbicort Inh (Budesonide/Formoterol Fumarate) 160-4.5 Mcg/Act Aero 2 Puff INH Q12HR Review of Systems General / Constitutional: No: Fever Eyes: No: Visual changes HENT: No: Headaches Cardiovascular: No: Chest Pain or Discomfort Respiratory: No: Shortness of Breath Gastrointestinal: No: Abdominal Pain Genitourinary: No: Dysuria Musculoskeletal: Positive: Pain (chronic pain) Skin: No Rash Neurologic: No: Weakness Psychiatric: No: Depression Endocrine: No: Polydipsia Hematologic/Lymphatic: No: Easy Bruising Physical Exam Narrative GENERAL: This is a well-nourished, well-developed patient, in no apparent distress. SKIN: No rashes, ecchymoses or lesions. Warm and dry. HEAD: Atraumatic. Normocephalic. EYES: PERRL, EOMI, no discharge or injection. No scleral icterus. EARS: Clear NOSE: Nasal turbinates appear normal. THROAT: Mucosa pink and moist. Airway patent. NECK: Trachea midline. supple, moves head freely. LUNGS: Clear to auscultation. CV: Regular in rhythm. ABDOMEN: Soft nontender. EXT: No clubbing cyanosis or edema. Data Data Last Documented VS Vital Signs Date Time Temp Pulse Resp B/P (MAP) Pulse Ox O2 Delivery O2 Flow Rate FiO2 05/01/17 20:44 98.7 81 18 128/89 (102) 98 Room Air [facility] Medical Screen Exam Complete: Yes Emergency Medical Condition: No Differential Diagnosis Differential diagnoses: Substance abuse, lab error, chronic pain Narrative Course A medical screening exam was performed: At the time of evaluation the presenting medical condition was determined not to be of an emergent nature. The patient was given the option of receiving additional care, but declined. Patient was given options for additional community resources from which to obtain care. The Patient Has Been advised to seek medical attention for their presenting complaint. The patient has been advised to return to the ER at any time if an emergent condition develops. Primary Impression: Encounter for medical screening examination Condition: Stable Rolando Jiang May 01, 2017 21:14
== END 2017-05-01 21:19 | disposition left against medical advice (07) ==
LOC: NEPK 20:43
DX: Z00.00 Encounter for general adult medical examination without abnormal findings (principal)
CPT/HCPCS: 99281

== ENCOUNTER 2017-07-15 15:05 | Emergency (ER) | payer MEDICAID ==
[~2017-07-15] VITALS: Ht 167.6 cm; Wt 100.0 kg
[2017-07-15 15:06] VITALS: BP 119/71; PULSE 80; RESP 20; TEMP 99.1; O2SAT 99
[2017-07-15] MEDS ORDERED: cefTRIAXone 250 MG VIAL IM ONE (18:30)
[2017-07-15] MEDS ORDERED: LIDOCAINE HCL 1% 50 ML VIAL XX ONE (18:30)
[2017-07-15 18:39] LABS: AMORPHOUS SEDIMENT, URINE RARE; BACTERIA, URINE FEW /hpf; BILIRUBIN, URINE NEG (NEG); BLOOD, URINE NEG (NEG); GLUCOSE,URINE NEG (NEG); KETONE, URINE NEG (NEG); MUCUS URINE MANY /lpf (OCC); NITRITE,URINE NEG (NEG); SQUAMOUS EPITHELIAL CELL URINE 13 /hpf (0-5); URINE COLOR YELLOW (YELLW/STRAW); URINE LEUKOCYTE ESTERASE NEG (NEG)
[2017-07-15] MEDS ORDERED: METR-1 PO (18:42)
[2017-07-15] MEDS ORDERED: DOXY100C PO (18:42)
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
== END 2017-07-15 19:20 | disposition home or self-care (01) ==
LOC: NEPD 15:05
DX: N73.9 Female pelvic inflammatory disease, unspecified (principal); R09.81 Nasal congestion; I11.0 Hypertensive heart disease with heart failure; I50.9 Heart failure, unspecified; F17.200 Nicotine dependence, unspecified, uncomplicated; J45.909 Unspecified asthma, uncomplicated
CPT/HCPCS: 81001; 84703; 87210; 87491; 87591; 96372; 99284; J0696

== ENCOUNTER 2017-08-22 11:00 | Emergency (ER) | payer MEDICAID ==
[~2017-08-22] VITALS: Ht 167.6 cm; Wt 90.0 kg
[~2017-08-22 11:00] MED LIST changes: -AUGM875T3 PO; -CYCL10TA PO; +DOXY100C PO; -FLUT1SPR5 EACH NARE; -HYDR-3535 PO; +METR-1 PO
[2017-08-22 11:09] VITALS: BP 142/75; PULSE 67; RESP 18; TEMP 98.7; O2SAT 99
[2017-08-22] MEDS ORDERED: SODIUM CHLORIDE 0.9% FLUSH 10 ML FLUSH IV FLUSH PRN (13:30)
[2017-08-22 13:43] VITALS: RESP 18; O2SAT 100
--- NOTE | 2017-08-22 13:55 | PD ---
HPI Chief Complaint: Cold / Flu Symptoms Time Seen by Provider: 13:30 Travel History International Travel<30 days: No Contact w/Intl Traveler<30days: No Traveled to known affect area: No History of Present Illness HPI 42-year-old female presents emergency department with 2 complaints. #1 is increasing pain and swelling of the right great toe with purulent drainage noted. Patient states she had a "procedure done by a doctor Hollie, auditor internal" 3 weeks ago. Since that time she has had increasing pain, swelling, and drainage from both edges of the nailbed which appear to have been removed. Patient also has complaints of sinus congestion, postnasal drip, cough , wheezing, shortness of breath, and chest congestion for the past 3 weeks. Patient states she does smoke 1 cigarette a day in the morning with her coffee. Patient states the toe pain is now an 8 out of 10, and worse with ambulation. She feels her cough is worsening as well as her shortness of breath. She does have a nebulizer at home which she uses in the morning but does not seem to help. She is allergic to vitamin K1, lisinopril, and pineapple. PFSH Past Medical History Hx Anticoagulant Therapy: Yes (LOVENOX) Arthritis: Yes (RA) Asthma: Yes Autoimmune Disease: No Bipolar Disorder: Yes Anxiety: Yes Depression: Yes Cancer: Yes (CERVICAL X2) Cardiac Catheterization: Yes (2009) Cardiovascular Problems: Yes High Cholesterol: No Chemotherapy: Yes Chest Pain: Yes Congestive Heart Failure: Yes Patient Takes Glucophage: No Diminished Hearing: No Endocrine: Yes Genitourinary: No Headaches: Yes Hypertension: Yes Immune Disorder: No Implanted Vascular Access Dvce: No Neurologic: Yes (MULTIPLE SCLEROSIS ) Psychiatric: Yes (OCD;BORDERLINE PERSONALITY DISORDER) Reproductive: No Respiratory: Yes Immunizations Current: No Seizures: Yes (UNTIL 18 YEARS OF AGE) Thyroid Disease: No Tetanus Vaccination: Unknown Influenza Vaccination: Yes ?: Not : 9 Para: 8 Miscarriage: 1 : 0 Tubal Ligation: Yes Past Surgical History Abdominal Surgery: Yes (ALONZO-RECTAL SURGERY) Section: Yes (X 5) Ear Surgery: No Endocrine Surgery: No Eye Surgery: No Genitourinary Surgery: No Gynecologic Surgery: Yes Oral Surgery: No Other Surgery: Yes (perirectal surgery x 2) Social History Alcohol Use: Yes (OCCASIONAL) Tobacco Use: Yes (<1 ppd) Substance Use: No Allergies-Medications (Allergen,Severity, Reaction): Coded Allergies: phytonadione (vitamin K1) (Unverified Allergy, Severe, THROAT SWELLS, 08/22) lisinopril (Unverified Allergy, Intermediate, HIVES / SEVERE COUGHING, 04/01) pineapple (Unverified Allergy, Intermediate, ITCHING, 08/22/17) Reported Meds & Prescriptions Reported Meds & Active Scripts Active Prednisone 20 Mg Tab 20 Mg PO DAILY 5 Days Ventolin Hfa 18 GM Inh (Albuterol Sulfate) 90 Mcg/Act Aer 2 Puff INH Q4-6H PRN Flonase Nasal Bitely (Fluticasone Nasal Bitely) 50 Mcg/Act Bitely 100 Mcg EACH NARE BID Bactrim DS (Sulfamethoxazole-Trimethoprim) 800-160 Mg Tab 1 Tab PO BID Ventolin Hfa 18 GM Inh (Albuterol Sulfate) 90 Mcg/Act Aer 2 Puff INH Q4H PRN Reported Amlodipine (Amlodipine Besylate) 5 Mg Tab 5 Mg PO DAILY Meloxicam 15 Mg Tab 15 Mg PO DAILY Ranitidine (Ranitidine HCl) 150 Mg Cap 150 Mg PO DAILY Benicar (Olmesartan) 40 Mg Tab 40 Mg PO DAILY Meclizine (Meclizine HCl) 25 Mg Tab 50 Mg PO BID PRN Lyrica (Pregabalin) 50 Mg Cap 50 Mg PO DAILY Coreg (Carvedilol) 12.5 Mg Tab 12.5 Mg PO BID Aspirin 81 Mg Chew 81 Mg CHEW DAILY Symbicort Inh (Budesonide/Formoterol Fumarate) 160-4.5 Mcg/Act Aero 2 Puff INH Q12HR Review of Systems Except as stated in HPI: all other systems reviewed are Neg General / Constitutional: Positive: Chills, No: Fever Eyes: No: Visual changes HENT: Positive: Headaches, Sore Throat, Rhinitis, Rhinorrhea, Congestion, No: Vertigo, Lightheadedness, Nosebleed, Neck Stiffness, Neck Pain, Dental Difficulties, Ear Discharge, Earache Cardiovascular: No: Chest Pain or Discomfort Respiratory: Positive: Cough, Shortness of Breath, Wheezing Gastrointestinal: No: Abdominal Pain Genitourinary: No: Dysuria Musculoskeletal: No: Pain Skin: Positive Lesions (See history of present illness), No Rash Neurologic: No: Weakness Psychiatric: No: Depression Endocrine: No: Polydipsia Hematologic/Lymphatic: No: Easy Bruising Physical Exam Narrative GENERAL: Patient appears in mild to moderate distress. SKIN: Warm and dry. Normal color. Normal turgor. Right great toe has obvious bilateral toenail removal with localized swelling and purulent drainage noted. There is mild warmth and erythema. It is somewhat tender to palpation. HEAD: Atraumatic. Normocephalic. Patient has bilateral frontal and maxillary sinus tenderness with percussion and palpation EYES: Pupils equal and round. No scleral icterus. No injection or drainage. ENT: No nasal bleeding or discharge. Mucous membranes pink and moist. TMs are dull bilaterally without injection. Postnasal drip and cobblestoning is noted in the posterior pharynx. Uvula is midline. Airway is patent. No significant tonsillitis. NECK: Trachea midline. Supple and nontender. CARDIOVASCULAR: Regular rate and rhythm. RESPIRATORY: No accessory muscle use. Mild diffuse wheezes to auscultation. Breath sounds equal bilaterally. GASTROINTESTINAL: Abdomen soft, non-tender, nondistended. Hepatic and splenic margins not palpable. MUSCULOSKELETAL: Extremities without clubbing, cyanosis, or edema. No obvious deformities. Right toe is somewhat swollen and tender with palpation otherwise no obvious deformity. NEUROLOGICAL: Awake and alert. No obvious cranial nerve deficits. Motor grossly within normal limits. Five out of 5 muscle strength in the arms and legs. Normal speech. PSYCHIATRIC: Appropriate mood and affect; insight and judgment normal. Data Data Last Documented VS Vital Signs Date Time Temp Pulse Resp B/P (MAP) Pulse Ox O2 Delivery O2 Flow Rate FiO2 08/22/17 13:43 18 100 Room Air 08/22/17 11:09 98.7 67 142/75 (97) Orders Orders Complete Blood Count With Diff (08/22/17 13:30) Comprehensive Metabolic Panel (08/22/17 13:30) Urinalysis - C+S If Indicated (08/22/17 13:30) Iv Access Insert/Monitor (08/22/17 13:30) Ecg Monitoring (08/22/17 13:30) Oximetry (08/22/17 13:30) Sodium Chloride 0.9% Flush (Ns Flush) (08/22/17 13:30) Chest, Single Ap (08/22/17 13:30) Toe (Min 2vws) (08/22/17 13:30) Labs Laboratory Tests Test 08/22/17 13:40 White Blood Count 5.8 TH/MM3 Red Blood Count 3.92 MIL/MM3 Hemoglobin 12.7 GM/DL Hematocrit 36.8 % Mean Corpuscular Volume 93.7 FL Mean Corpuscular Hemoglobin 32.4 PG Mean Corpuscular Hemoglobin Concent 34.5 % Red Cell Distribution Width 15.3 % Platelet Count 357 TH/MM3 Mean Platelet Volume 8.8 FL Neutrophils (%) (Auto) 56.0 % Lymphocytes (%) (Auto) 32.2 % Monocytes (%) (Auto) 7.2 % Eosinophils (%) (Auto) 3.4 % Basophils (%) (Auto) 1.2 % Neutrophils # (Auto) 3.2 TH/MM3 Lymphocytes # (Auto) 1.9 TH/MM3 Monocytes # (Auto) 0.4 TH/MM3 Eosinophils # (Auto) 0.2 TH/MM3 Basophils # (Auto) 0.1 TH/MM3 CBC Comment DIFF FINAL Differential Comment Urine Color YELLOW Urine Turbidity HAZY Urine pH 5.0 Urine Specific [place] 1.025 Urine Protein TRACE mg/dL Urine Glucose (UA) NEG mg/dL Urine Ketones NEG mg/dL Urine Occult Blood MOD Urine Nitrite NEG Urine Bilirubin NEG Urine Urobilinogen LESS THAN 2.0 MG/DL Urine Leukocyte Esterase LARGE Urine RBC 9 /hpf Urine WBC 4 /hpf Urine Squamous Epithelial Cells 23 /hpf Urine Amorphous Sediment FEW Urine Bacteria OCC /hpf Urine Hyaline Casts 2 /lpf Urine Mucus MOD /lpf Microscopic Urinalysis Comment CULT NOT INDICATED Blood Urea Nitrogen 11 MG/DL Creatinine 0.81 MG/DL Random Glucose 99 MG/DL Total Protein 7.7 GM/DL Albumin 3.4 GM/DL Calcium Level 8.4 MG/DL Alkaline Phosphatase 82 U/L Aspartate Amino Transf (AST/SGOT) 29 U/L Alanine Aminotransferase (ALT/SGPT) 22 U/L Total Bilirubin 0.3 MG/DL Sodium Level 138 MEQ/L Potassium Level 4.2 MEQ/L Chloride Level 105 MEQ/L Carbon Dioxide Level 26.5 MEQ/L Anion Gap 7 MEQ/L Estimat Glomerular Filtration Rate 94 ML/MIN [facility] Medical Decision Making Medical Screen Exam Complete: Yes Emergency Medical Condition: Yes Differential Diagnosis Right great toe osteomyelitis. Cellulitis. Sinusitis. Bronchitis. Pneumonia. Postnasal drip. Narrative Course I am concerned about possible osteomyelitis of the right great toe. I am also concerned about possible sinusitis versus bronchitis/pneumonia. Labs ordered including CBC, CMP, and x-rays of the right great toe and chest were ordered. CBC is unremarkable CMP is unremarkable. Urinalysis is hazy with moderate occult blood, and large leukocyte esterase, however there are only 4 WBCs per high-power field, 9 RBCs per high-power field , occasional bacteria, and moderate mucus and 2 while in cast it states it was not indicated for culture. X-ray shows no signs of osteomyelitis. Patient will be treated empirically for sinusitis/bronchitis with Bactrim DS twice daily 10 days. Patient is given prednisone 20 mg daily for 5 days. Patient is given albuterol metered-dose inhaler 2 puffs every 4-6 hours as needed cough and wheeze. Patient is started on Flonase nasal spray 2 sprays each nostril daily. Patient should follow-up with her auditor internal regarding her toe as soon as possible. The Bactrim should help with this, but follow-up is recommended. Diagnosis Primary Impression: Acute wheezy bronchitis Additional Impressions: Sinusitis Qualified Codes: J01.40 - Acute pansinusitis, unspecified Cellulitis of right toe Referrals: [facility] call for appointment Primary Care Physician call for appointment Patient Instructions: Acute Bronchitis (ED), Cellulitis (ED), General Instructions, Rhinosinusitis (ED) Additional Instructions: CBC is unremarkable CMP is unremarkable. Urinalysis is hazy with moderate occult blood, and large leukocyte esterase, however there are only 4 WBCs per high-power field, 9 RBCs per high-power field , occasional bacteria, and moderate mucus and 2 while in cast it states it was not indicated for culture. X-ray shows no signs of osteomyelitis. Patient will be treated empirically for sinusitis/bronchitis with Bactrim DS twice daily 10 days. Patient is given prednisone 20 mg daily for 5 days. Patient is given albuterol metered-dose inhaler 2 puffs every 4-6 hours as needed cough and wheeze. Patient is started on Flonase nasal spray 2 sprays each nostril daily. Patient should follow-up with her auditor internal regarding her toe as soon as possible. The Bactrim should help with this, but follow-up is recommended. Med/Other Pt SpecificInfo: Prescription(s) given Scripts Prednisone (Prednisone) 20 Mg Tab 20 MG PO DAILY for 5 Days, #5 TAB 0 Refills Prov: Peter Holcomb MD 08/22/17 Albuterol 18 GM Inh (Ventolin Hfa 18 GM Inh) 90 Mcg/Act Aer 2 PUFF INH Q4-6H Y for SHORTNESS OF BREATH, #1 INHALER 0 Refills Prov: Peter Holcomb MD 08/22/17 Fluticasone Nasal Bitely (Flonase Nasal Bitely) 50 Mcg/Act Bitely 100 MCG EACH NARE BID for Allergies, #1 BOTTLE 0 Refills Prov: Peter Holcomb MD 08/22/17 Sulfamethoxazole-Trimethoprim (Bactrim DS) 800-160 Mg Tab 1 TAB PO BID for Infection, #20 TAB 0 Refills Prov: Peter Holcomb MD 08/22/17 Disposition: 01 DISCHARGE HOME Condition: Stable Baltazar Reyna Aug 22, 2017 13:55
[2017-08-22 14:02] LABS: AUTOMATED NEUTROPHIL # 3.2 TH/MM3 (1.8-7.7); BASOPHIL # 0.1 TH/MM3 (0-0.2); BASOPHIL % 1.2 % (0.0-2.0); EOSINOPHIL # 0.2 TH/MM3 (0-0.4); EOSINOPHIL % 3.4 % (0.0-4.0); HEMATOCRIT 36.8 % (35.0-46.0); HEMOGLOBIN 12.7 GM/DL (11.6-15.3); LYMPH % 32.2 % (9.0-44.0); LYMPHOCYTE # 1.9 TH/MM3 (1.0-4.8); MEAN CELL VOLUME 93.7 FL (80.0-100.0); MEAN CORPUSCULAR HEMOGLOBIN 32.4 PG (27.0-34.0); MEAN CORPUSCULAR HGB CONC 34.5 % (32.0-36.0); MEAN PLATELET VOLUME 8.8 FL (7.0-11.0); MONO % 7.2 % (0.0-8.0); MONOCYTE # 0.4 TH/MM3 (0-0.9); PLATELET COUNT 357 TH/MM3 (150-450); RED BLOOD COUNT 3.92 MIL/MM3 (4.00-5.30); RED CELL DISTRIBUTION WIDTH 15.3 % (11.6-17.2); WHITE BLOOD COUNT 5.8 TH/MM3 (4.0-11.0)
[2017-08-22 14:20] LABS: AMORPHOUS SEDIMENT, URINE FEW; BACTERIA, URINE OCC /hpf; BILIRUBIN, URINE NEG (NEG); BLOOD, URINE MOD (NEG); GLUCOSE,URINE NEG (NEG); HYALINE CAST, URINE 2 /lpf (RARE); KETONE, URINE NEG (NEG); MUCUS URINE MOD /lpf (OCC); NITRITE,URINE NEG (NEG); SQUAMOUS EPITHELIAL CELL URINE 23 /hpf (0-5); URINE COLOR YELLOW (YELLW/STRAW); URINE LEUKOCYTE ESTERASE LARGE (NEG)
[2017-08-22 14:24] LABS: ALT (GPT) 22 U/L (10-53)
[2017-08-22 14:25] LABS: ALKALINE PHOSPHATASE 82 U/L (45-117); TOTAL BILIRUBIN ADULT 0.3 MG/DL (0.2-1.0); TOTAL PROTEIN 7.7 GM/DL (6.4-8.2)
[2017-08-22 14:28] LABS: ALBUMIN 3.4 GM/DL (3.4-5.0); AST (GOT) 29 U/L (15-37); BICARBONATE 26.5 MEQ/L (21.0-32.0); BLOOD UREA NITROGEN 11 MG/DL (7-18); CALCIUM 8.4 MG/DL (8.5-10.1); CHLORIDE 105 MEQ/L (98-107); CREATININE 0.81 MG/DL (0.50-1.00); GLOMERULAR FILTRATION RATE 94 ML/MIN (>89); GLUCOSE,RANDOM 99 MG/DL (74-106); SODIUM (NA) 138 MEQ/L (136-145)
--- NOTE | 2017-08-22 14:29 | RADRPT ---
EXAM DATE/TIME: 08/22/2017 13:52 [facility] COMPARISON: No previous studies available for comparison. INDICATIONS : Inflammation. Evaluate for Osteomalacia. MEDICAL HISTORY : Congestive heart failure. Hypertension SURGICAL HISTORY : None. ENCOUNTER: Initial ACUITY: 1 week PAIN SCORE: 8/10 LOCATION: Right Foot 1st digit. FINDINGS: 3 views right first digit. Bone alignment within normal limits. No evidence of fracture. Small osteo phytes of the great toe metatarsophalangeal joint and interphalangeal joint. There is diffuse soft ti ssue swelling of the distal great toe. No focal bone erosion identified. CONCLUSION: No evidence of fracture. No focal bone erosion. Mild osteoarthritic findings. Mark Khan MD on August 22, 2017 at 14:26 Board Certified Radiologist. This report was verified electronically.
--- NOTE | 2017-08-22 14:30 | RADRPT ---
EXAM DATE/TIME: 08/22/2017 13:58 [facility] COMPARISON: CHEST SINGLE AP, September 29, 2016, 23:49. INDICATIONS : Chest pain. MEDICAL HISTORY : Hypertension. Congestive heart failure. SURGICAL HISTORY : None. ENCOUNTER: Initial ACUITY: 3 days PAIN SCORE: 6/10 LOCATION: Bilateral chest Middle of chest FINDINGS: Single AP view of the chest. The lungs are clear. Cardiomediastinal silhouette within normal limits. No evidence of pleural effusion or pneumothorax. CONCLUSION: No acute cardiopulmonary disease identified. Mark Khan MD on August 22, 2017 at 14:28 Board Certified Radiologist. This report was verified electronically.
[2017-08-22] MEDS ORDERED: VENTAER INH (14:54)
[2017-08-22] MEDS ORDERED: PRED20 PO (14:54)
[2017-08-22] MEDS ORDERED: FLUT1SPR5 EACH NARE (14:54)
[2017-08-22] MEDS ORDERED: BACT800T5 PO (14:54)
== END 2017-08-22 15:26 | disposition home or self-care (01) ==
LOC: NEPD 11:00
DX: J20.9 Acute bronchitis, unspecified (principal); J01.40 Acute pansinusitis, unspecified; L03.031 Cellulitis of right toe; I11.0 Hypertensive heart disease with heart failure; I50.9 Heart failure, unspecified; M06.9 Rheumatoid arthritis, unspecified; J45.909 Unspecified asthma, uncomplicated; G35 Multiple sclerosis; F17.200 Nicotine dependence, unspecified, uncomplicated
CPT/HCPCS: 71045; 73660; 80053; 81001; 85025; 99284